=== PATIENT | male | born 1955 | race Caucasian/White ===

== ENCOUNTER 2024-08-27 08:46 | Day surgery (SDC) | payer OTHER ==
[~2024-08-27] VITALS: Ht 177.8 cm; Wt 87.2 kg
[~2024-08-27 08:46] MED LIST: CYCL10 PO; FLUSAL1005; HYDACE5 PO; IBUP800 PO; Lactated Ringer's 1,000 ML IV ONE; META800 PO; OSEL75CA PO; OXYACE5T PO; PROM25 PO; RXPROM25 PO; THEO300ERA; THYROXINE; propofoL 50 ML IV ONE
[2024-08-27] MEDS ORDERED: LEVSOD88 (08:58)
[2024-08-27] MEDS ORDERED: Lactated Ringer's 1,000 ML IV ONE (09:20)
[2024-08-27 10:29] VITALS: BP 111/74
== END 2024-08-27 10:25 | disposition home or self-care (01) ==
LOC: ORSCSDS 08:46
PROVIDERS: Surgery
PROC: 0DBK8ZX Excision of Ascending Colon, Via Natural or Artificial Opening Endoscopic, Diagnostic (ICD-10-PCS; principal; 2024-08-27 10:15)
DX: Z12.11 Encounter for screening for malignant neoplasm of colon (principal); D12.2 Benign neoplasm of ascending colon; K57.30 Diverticulosis of large intestine without perforation or abscess without bleeding; J45.909 Unspecified asthma, uncomplicated; E78.5 Hyperlipidemia, unspecified; E03.9 Hypothyroidism, unspecified; Z79.899 Other long term (current) drug therapy
CPT/HCPCS: 88305; J2704; J7120